=== PATIENT | female | born 1990 | race Caucasian/White ===

== ENCOUNTER 2018-04-29 18:25 | Emergency (ER) | payer SELFPAY ==
[~2018-04-29] VITALS: Ht 157.5 cm; Wt 127.0 kg
[2018-04-29 18:41] VITALS: BP 146/98
--- NOTE | 2018-04-29 18:45 | NUR ---
PT TRIAGED AND SENT TO ER LOBBY
--- NOTE | 2018-04-29 20:05 | NUR ---
Reassessed. No new complaints or changes.
--- NOTE | 2018-04-29 20:40 | NUR ---
PT AMBULATED TO BED 07.
--- NOTE | 2018-04-29 21:37 | NUR ---
Dr. Jewell evaluating patient at bedside.
[2018-04-29 21:55] VITALS: BP 117/75
--- NOTE | 2018-04-29 21:55 | NUR ---
Patient discharged with v/s stable. Written and verbal after care instructions given and explained. Patient alert, oriented and verbalized understanding of instructions. Ambulatory with steady gait. All questions addressed prior to discharge. ID band removed. Patient advised to follow up with PMD. Rx of Naproxen, Neosporin, and Keflex given. Patient educated on indication of medication including possible reaction and side effects. Opportunity to ask questions provided and answered.
== END 2018-04-29 21:55 | disposition home or self-care (01) ==
LOC: MED 18:25
DX: L73.9 Follicular disorder, unspecified (principal)
CPT/HCPCS: 99283

== ENCOUNTER 2018-11-09 20:36 | Emergency (ER) | payer SELFPAY ==
[~2018-11-09] VITALS: Ht 157.5 cm; Wt 122.0 kg
[2018-11-09 20:40] VITALS: BP 106/74
--- NOTE | 2018-11-09 20:40 | NUR ---
TO BED #07 AMBULATORY
--- NOTE | 2018-11-09 21:03 | NUR ---
28/F PRESENTS TO ED, C/O 01/29 INTERMITTENT BURNING BL LOWER ABD PAIN, X1 WEEK. REPORTS FEELING SIMILAR EPISODE 2 MONTHS AGO, DX COLITIS, WAS GIVEN RX ABX. PT REPORTS VOMITING EPISODES X3 AND CHILLS SINCE YESTERDAY, DENIES FEVER, CONSTIPATION, DIARRHEA OR DYSURIA. AOX4, SKIN NORMAL WARM DRY, RR EVEN AND UNLABORED, BS ACTIVE X4, ABD LARGE SOFT ROUND DIFFUSELY TENDER. HX ASTHMA RX ALBUTEROL INHALER
[2018-11-09 21:21] LABS: APPEARANCE,URINE HAZY (CLEAR); BILIRUBIN,URINE 1+ (NEGATIVE); BLOOD, URINE 3+ (NEGATIVE); COLOR,URINE ORANGE (YELLOW); LEUKOCYTE ESTERASE ,URINE NEGATIVE (NEGATIVE); NITRITE, URINE NEGATIVE (NEGATIVE); PH,URINE 5.5 (5.0-9.0); UGLUCOSE NEGATIVE (NEGATIVE)
[2018-11-09 21:22] LABS: RBC,URINE 50-80 /HPF (0-5)
[2018-11-09 21:38] LABS: BASOPHILS % (AUTO) 0.4 % (0.0-2.0); EOSINOPHILS # (AUTO) 1.1 K/uL (0-0.4); EOSINOPHILS % (AUTO) 10.7 % (0.0-4.0); HEMATOCRIT 42.2 % (36-48); LYMPHOCYTES # (AUTO) 3.7 K/uL (2.5-16.5); LYMPHOCYTES % (AUTO) 34.9 % (20.5-51.1); MEAN CORPUSCULAR HEMOGLOBIN 31 pg (27-31); MEAN CORPUSCULAR HGB CONC 33 g/dL (33-37); MEAN CORPUSCULAR VOLUME 92.6 fL (80-94); MONOCYTES # (AUTO) 0.7 K/uL (0.8-1.0); NEUTROPHILS # (AUTO) 4.9 K/uL (1.8-7.7); PLATELET COUNT (AUTO) 306 K/uL (140-450); RED BLOOD CELL COUNT(AUTO) 4.56 MIL/uL (4.20-5.40); RED CELL DISTRIBUTION WIDTH 13.3 % (11.6-13.7); WHITE BLOOD COUNT (AUTO) 10.5 K/uL (4.8-10.8)
[2018-11-09 21:55] LABS: ANION GAP 10.5 (8-16); CARBON DIOXIDE 27.2 mmol/L (21-32); CREATININE 0.8 mg/dL (0.6-1.3); POTASSIUM 3.7 mmol/L (3.5-5.1)
[2018-11-09 22:01] LABS: ALBUMIN 3.2 g/dL (3.4-5.0); TOTAL BILIRUBIN 0.2 mg/dL (0.0-1.0)
--- NOTE | 2018-11-09 23:30 | NUR ---
Patient discharged with v/s stable. Patient acting appropriatly, states pain 3/10 and feels better to go home. Written and verbal after care instructions given and explained. Patient alert, oriented and verbalized understanding of instructions. Ambulatory with steady gait. All questions addressed prior to discharge. ID band removed. Patient advised to follow up with PMD. Rx of Keflex given. Patient educated on indication of medication including possible reaction and side effects. Opportunity to ask questions provided and answered.
[2018-11-09 23:35] VITALS: BP 102/73
== END 2018-11-09 23:30 | disposition home or self-care (01) ==
LOC: MED 20:36
DX: N83.202 Unspecified ovarian cyst, left side (principal); N39.0 Urinary tract infection, site not specified; J45.909 Unspecified asthma, uncomplicated
CPT/HCPCS: 36415; 74177; 80053; 81001; 81025; 83690; 85025; 87086; 99284; Q9967; 81002; 99283

== ENCOUNTER 2022-08-19 13:55 | Emergency (ER) | payer SELFPAY ==
[~2022-08-19] VITALS: Ht 160 cm; Wt 125.6 kg
[2022-08-19 14:02] VITALS: BP 153/95
[2022-08-19 15:52] VITALS: BP 117/98
--- NOTE | 2022-08-19 15:56 | NUR ---
Elodia beltre in [facility] - 08/19/22 at 1633 by FABRICE SWABS HANDED TO LAB
--- NOTE | 2022-08-19 16:32 | NUR ---
Note undone in EDM - 08/19/22 at 1759 by FABRICE Patient discharged with v/s stable. Written and verbal after care instructions ABOUT [facility] given and explained. Patient alert, oriented and verbalized understanding of instructions. Ambulatory with steady gait. All questions addressed prior to discharge. ID band removed. Patient advised to follow up with PMD. Rx of TYLENOL given. Patient educated on indication of medication including possible reaction and side effects. Opportunity to ask questions provided and answered.
[2022-08-19] MEDS ORDERED: KETOROLAC 15 MG/ML VIAL IM ONE (17:40)
--- NOTE | 2022-08-19 17:59 | NUR ---
DR FIELDS ATTEMPTED TO CALL NOT FOUND IN LOBBY
--- NOTE | 2022-08-19 18:14 | NUR ---
Elodia beltre in [facility] - 08/19/22 at 1814 by FABRICE PATIENT LEFT WITHOUT BEING SEEN BY DR. FIELDS. NO FURTHER CARE PROVIDED FOR PATIENT.
--- NOTE | 2022-08-19 18:14 | NUR ---
PATIENT ELOPED FROM FACILITY. DISCHARGE INSTRUCTIONS NOT GIVEN TO PATIENT. DR. FIELDS NOTIFIED.
== END 2022-08-19 18:14 | disposition home or self-care (01) ==
LOC: MED 13:55
DX: B34.9 Viral infection, unspecified (principal); Z20.822 Contact with and (suspected) exposure to COVID-19; J45.909 Unspecified asthma, uncomplicated
CPT/HCPCS: 99283